=== PATIENT | male | born 2000 | race Caucasian/White ===

== ENCOUNTER 2022-05-24 08:53 | Day surgery (SDC) | payer BC ==
[2022-05-24] MEDS ORDERED: Ringers Lactate 1,000 ML IV ONE (09:05)
[2022-05-24] MEDS: OXYMETAZOLINE HCL 0.05% 15ML NAS ONE ×3 (09:20→09:30)
[2022-05-24] MEDS ORDERED: ROCURONIUM 50 MG/5 ML VIAL IV ONE (10:48)
[2022-05-24] MEDS ORDERED: propofoL 200 MG/20 ML VIAL IV ONE (10:48)
[2022-05-24] MEDS ORDERED: MIDAZOLAM HCL 2 MG/2 ML INJ ONE (10:48)
[2022-05-24] MEDS ORDERED: dexAMETHasone 10 MG/ML VIAL ONE (10:48)
[2022-05-24] MEDS ORDERED: FENTANYL CITR 100 MCG/2 ML ONE ×2 (10:48→13:41)
[2022-05-24] MEDS ORDERED: ONDANSETRON 4 MG/2 ML VIAL ONE (10:49)
[2022-05-24] MEDS ORDERED: NA CHLORIDE 0.9% 500 ML ONE (11:26)
[2022-05-24] MEDS ORDERED: OXYMETAZOLINE HCL 0.05% 15ML NAS ONE (11:26)
[2022-05-24] MEDS ORDERED: LIDOCAINE 1.5% W/EPI AMP 5 ML ONE (11:26)
[2022-05-24] MEDS ORDERED: EPINEPHRINE/PF 1 MG/ML AMP ONE (11:26)
[2022-05-24] MEDS ORDERED: LIDOCAINE 1% MPF 2 ML AMPULE ONE (15:16)
--- NOTE | 2022-05-24 15:57 | P.OP ---
Date of Service: 05/24/22 Preoperative Diagnosis: [Chronic maxillary sinusitis] [, chronic ethmoid sinusitis] [, chronic frontal sinusitis] [, chronic sphenoid sinusitis] [, nasal obstruction] [, deanna bullosa], [, inferior turbinate hypertrophy] Postoperative diagnosis: Same, nasal polyps and polypoid edema Procedure: Nasal endoscopy with left frontal sinusotomy, bilateral total ethmoidectomy, bilateral balloon sphenoidotomy, and bilateral maxillary antrostomy using image guidance, extradural CT navigation. Bilateral inferior turbinate reduction via submucosal and mucosal Coblation Surgeon: Christina Tuttle MD Hot Stamp Operator: None Indication for procedure: The patient presented with chronic sinusitis symptoms. After maximal medical therapy, the patient underwent CT sinus demonstrating persistent obstruction of the OMC, partial opacification of the bilateral ethmoids, obstruction of the left frontal recess and bilateral sphenoethmoid recess ease with mild septal deviation and turbinate enlargement. The risks, benefits, and alternatives to surgical procedure were discussed with the patient and/or family and they agreed to proceed. Surgical findings: The bilateral inferior turbinates were very large. The bilateral middle turbinates demonstrated significant polypoid mucosal changes. Polyps and polypoid edema was noted in the ethmoids, worse on the left side IV Fluids: Crystalloid Implants/Packing: Propel steroid eluding stent to the bilateral ethmoid cavity, Posisep resorbable hemostatic sinus packing to the bilateral ethmoid cavity Estimated Blood Loss: 120 mL Complications: [none] Description of procedure in detail: The patient was brought to the operating room. They were placed under general anesthesia via oral endotracheal tube. The head of bed was turned 90 degrees. The nasal hairs were trimmed. The nasal cavity was examined with the nasal speculum and headlight with the following findings: Turbinate enlargement, left middle turbinate enlargement, right septal deviation. The nasal cavity was packed with Afrin-soaked pledgets in preparation for the procedure. The patient was draped in a standard fashion for nasal surgery. [Based on the surgical plan and preoperative findings, intraoperative CT navigation was required. The preoperative CT scan was loaded into the [employer]SE EVAKUATORY ROSSII device. The registration dongle was applied with adhesive to the patient's forehead. The electromagnetic device was secured to the operating room bed and evaluation to limit interference was confirmed. The registration handpiece was used to perform patient registration in accordance with websphere commerce architect's instructions including tracing over the course of the external nose and bilateral forehead and cheeks. Accuracy of the registration was confirmed with [id number] matching at the base of the columella, the radix, and the bilateral medial and lateral canthi. Accuracy was felt to be very good.] A 0 degree endoscope was then used to perform a nasal endoscopy with notable findings of there was polypoid mucosal changes of the bilateral inferior turbinate. Photo documentation was obtained. The 0 degree endoscope was used to perform a nasal endoscopy. The left middle turbinate deanna was incised using a sickle knife and the lateral portion was dissected using scissors, through cut 45 degree and straight Blakesley's. The lateral portion was then removed. The remnant of the middle turbinate was then medialized but noted to be somewhat floppy due to the polypoid changes and destabilization after removal of the deanna. The uncinate process was noted to be somewhat polypoid as well and was carefully dissected and removed. The 0 degree endoscope and precision pointer were used to examine the ethmoid bulla. A curette was used to incise through the bulla and the straight, 45, and 90 degree Blakesley's were used to remove ethmoid partitions. It was noted that the ethmoids contain significant polypoid edema and polypoid/polyp changes of the mucosa. The precision pointer was used intermittently throughout dissection of the ethmoids to aid in identification of the lamina and the skull base. The 30 and 70 degree rigid endoscopes were then used along with the precision pointer to identify the frontal recess on the left. The iPipeline balloon dilation device was used to explore and dilate the frontal recess. The 70 degree endoscope was used to visualize the frontal recess and bony partitions were removed using the front to back and side to side giraffe forceps until the frontal recess was adequately opened. The 70 degree endoscope was then used to visualize the lateral nasal wall and the precision pointer was used to identify the maxillary antrum. The mucosa was significantly polypoid making direct visualization difficult. After confirmation of location with the precision pointer, this area was carefully dissected. A yellow appearing polyp was noted during the dissection. Palpation of the left orbit did not demonstrate any movement or confirm any suspicion for orbital fat. This yellow appearing polyp was carefully removed and after removal appeared to come and from and obstruct the maxillary sinus. After removal additional small fragments of bone were removed, enlarging the antrostomy. Once adequate dissection had been performed, the area was packed with Afrin-soaked pledgets and attention was turned to the right side The right middle turbinate was noted to be somewhat polypoid. The septum had some high right deviation which made dissection more difficult but I elected to defer septoplasty. With medialization of the middle turbinate, there were polyps and a small contra associated with the middle turbinate which were removed using straight and 90 degree Blakesley's. The Coblator turbinate blade was used to Coblator some of the polyps in order to avoid excessive mucosal removal. The middle turbinate was quite floppy making the remainder of the pr ocedure more challenging and lengthy than expected. The uncinate process was difficult to identify and may have been a bit lateralized. The ethmoid bulla was identified, confirmed with the precision pointer image guidance, then dissected using the curette and straight, 45 degree, and 90 degree Blakesley's. The precision pointer was used intermittently throughout the procedure to confirm location and avoid injury to the skull base and the orbit. The 70 degree endoscope was used to dissect along the skull base using 90 degree Blakesley and girgenie forceps. Once the ethmoids were dissected, attention was turned to the sphenoids. The iPipeline balloon dilation device was reconfigured and the sphenoethmoid recess was examined. On the left side the area looks somewhat abnormal with a rounded area. Using the precision pointer, I was able to confirm that this was some very medial reaching posterior ethmoid partitions and these were dissected and removed with the curette and Blakesley's. Accessing from the middle meatus approach, additional bony partitions were removed from the posterior ethmoids in order to ensure a more adequate dissection. This allowed significant improvement in regards to access to the sphenoethmoid recess. The left sphenoid was cannulated and the opening was dilated with the balloon. After release of the balloon pressure, the balloon was carefully removed and there was no evidence of significant injury. The right sphenoid was then dilated in a similar fashion. The Coblator turbinate device was used to perform submucosal Coblation on the left inferior turbinate. Both Coblation and coagulation were used in order to reduce the amount of soft tissue as well as aid in hemostasis. The right inferior turbinate was somewhat polypoid and submucosal dissection was difficult due to the floppiness of the mucosa. Therefore a transmural ablation/Coblation was performed in order to reduce the size of the turbinate and improve the patient's nasal airway. Attention was then returned to the right middle meatus. The lateral wall was carefully palpated and the residual portions of the uncinate were identified and removed using Blakesley's. The maxillary antrostomy was then visualized using a 30 degree endoscope and additional areas of mucosal swelling and bone fragments were removed using the 90 degree Blakesley. After removal of all the packing and confirmation of pledget counts, a propel steroid eluding sinus stent was placed under endoscopic guidance to the right and left ethmoid space. A Posisep resorbable sinus dressing was divided and p laced within the bilateral ethmoid cavities to aid in hemostasis. These were thoroughly saturated with saline to improve postoperative dissolution. The nasopharynx was suctioned and the area appeared hemostatic with no active bleeding noted from the sinus cavities. At the conclusion of the procedure, all pledget counts were confirmed correct. The patient was returned to care of anesthesia for awakening extubation in the operating room which proceeded without difficulty. The patient was transported to the recovery room and will be discharged home later today in the care of their family. The patient is given written and verbal instructions regarding the importance of saline irrigations and nasal precautions.
[2022-05-24] MEDS ORDERED: HYDROMORPHONE HCL 1 MG/ML INJ ONE (15:58)
[2022-05-24] MEDS ORDERED: MEPERIDINE HCL 25 MG/ML SYR ONE (16:17)
[2022-05-24 16:55] VITALS: BP 148/90
[2022-05-24 17:26] VITALS: TEMP 96.8; O2SAT 100
== END 2022-05-24 17:25 | disposition home or self-care (01) ==
LOC: OR 08:53
PROVIDERS: ATTEND Otolaryngology
PROC: 099R8ZZ Drainage of Left Maxillary Sinus, Via Natural or Artificial Opening Endoscopic (ICD-10-PCS; 2022-05-24)
PROC: 099Q8ZZ Drainage of Right Maxillary Sinus, Via Natural or Artificial Opening Endoscopic (ICD-10-PCS; 2022-05-24)
PROC: 8E09XBZ Computer Assisted Procedure of Head and Neck Region (ICD-10-PCS; 2022-05-24)
PROC: 09BT8ZZ Excision of Left Frontal Sinus, Via Natural or Artificial Opening Endoscopic (ICD-10-PCS; 2022-05-24)
PROC: 09BL8ZZ Excision of Nasal Turbinate, Via Natural or Artificial Opening Endoscopic (ICD-10-PCS; 2022-05-24)
PROC: 8E09XBZ Computer Assisted Procedure of Head and Neck Region (ICD-10-PCS; principal; 2022-05-24 10:15)
DX: J32.2 Chronic ethmoidal sinusitis (principal); J32.0 Chronic maxillary sinusitis; J32.1 Chronic frontal sinusitis; J32.3 Chronic sphenoidal sinusitis; J34.89 Other specified disorders of nose and nasal sinuses; J34.3 Hypertrophy of nasal turbinates; J33.0 Polyp of nasal cavity; R60.9 Edema, unspecified
CPT/HCPCS: 31257; 31256; 61782; 31276; 30140; 88304; J2704; J2250; J3010 ×2; J1100; J2175; J1170; J7120; J7040; J2405; 88305; 88311; J0171